=== PATIENT | female | born 1930 | race Caucasian/White ===

== ENCOUNTER 2016-11-05 03:15 | Inpatient (IN) | payer OTHER ==
[2016-11-05] VITALS (10 sets, daily range): BP systolic 104–116; BP diastolic 51–60
[~2016-11-05] VITALS: Ht 165.1 cm; Wt 59.0 kg
[~2016-11-05 03:15] MED LIST: AMLO5TAB2 PO; ASPI81TA2 PO; ATOR40TA PO; CLOP75TA2 PO; DEXT15DR6 EACHEYE; EZET10TA PO; HYDR-552 PO; IPRA3AMP IH; ISOS30TA6 PO; LEVO137T2 PO; LEVO500T15 PO; METO25TA6 PO; MULT1TAB73 PO; PARO40TA3 PO; PRED20TA PO; TEMA30CA PO
[2016-11-05 03:56] LABS: BASOPHILS % (AUTO) 0.4 % (0.0-2.0); DIFF TOTAL % 100 %; EOSINOPHILS # (AUTO) 0.1 /CMM (0.0-0.7); EOSINOPHILS % (AUTO) 0.9 % (0.0-6.0); HEMATOCRIT 35 % (33-45); HEMOGLOBIN 11.3 g/dL (11.5-14.8); LYMPHOCYTES # (AUTO) 1.4 /CMM (0.8-4.8); LYMPHOCYTES % (AUTO) 12.1 % (20.0-44.0); MEAN CORPUSCULAR HEMOGLOBIN 28 PG (26.0-33.0); MEAN CORPUSCULAR HGB CONC 33 g/dl (31.0-36.0); MEAN CORPUSCULAR VOLUME 85 fL (82-100); MONOCYTES # (AUTO) 0.6 /CMM (0.1-1.30); MONOCYTES % (AUTO) 5.4 % (2.0-12.0); NEUTROPHILS # (AUTO) 9.2 /CMM (1.8-8.9); NEUTROPHILS % (AUTO) 81.2 % (43.0-81.0); PLATELET COUNT (AUTO) 329 /CMM (150-450); RED BLOOD CELL COUNT(AUTO) 4.09 MIL/uL (4.0-5.2); WHITE BLOOD COUNT (AUTO) 11.4 K/uL (4.3-11.0)
[2016-11-05 04:11] LABS: ANION GAP 11 (5-14); CALCIUM, SERUM 8.4 mg/dL (8.5-10.1); CARBON DIOXIDE 27 mmol/L (21-32); CHLORIDE 108 mmol/L (98-107); CREATININE 1.3 mg/dL (0.6-1.3); GLUCOSE 164 mg/dL (74-106); POTASSIUM 3.5 mmol/L (3.5-5.1); SODIUM SERUM 142 mmol/L (136-145); UREA NITROGEN, BLOOD 16 mg/dL (7-18)
[2016-11-05 04:19] LABS: INR 1.05 (0.87-1.13); PROTHROMBIN TIME 11.3 SECS (9.5-12.7)
[2016-11-05 04:25] LABS: ALANINE AMINOTRANSFERASE 14 U/L (12-78); ALBUMIN 2.9 g/dL (3.4-5.0); ASPARTATE AMINOTRANSFERASE 16 U/L (15-37); BILIRUBIN,DIRECT 0.1 mg/dL (0.0-0.2); BILIRUBIN,TOTAL 0.5 mg/dL (0.2-1.0); INDIRECT BILIRUBIN 0.4 mg/dL (0.0-1.1); TOTAL PROTEIN, SERUM 6.5 g/dL (6.4-8.2)
[2016-11-05 04:26] LABS: LACTIC ACID 2.6 mmol/L (0.4-2.0)
[2016-11-05 04:49] LABS: *LACTIC ACID REFLEX FLAG YES
[2016-11-05] MEDS ORDERED: HOME MED MISCELLANEOUS XX SCH (08:30)
[2016-11-05] MEDS: AMLODIPINE BESYLATE 5 MG TABLET PO SCH (09:00)
[2016-11-05] MEDS ORDERED: FUROSEMIDE 20 MG/2 ML VIAL IV SCH (09:00)
[2016-11-05] MEDS ORDERED: predniSONE 20 MG TABLET PO SCH (09:00)
[2016-11-05] MEDS ORDERED: POLYVINYL ALCOHOL 15 ML BOTTLE EACHEYE PRN (09:00)
[2016-11-05] MEDS: ISOSORBIDE MONONITRATE (30MG) 30 MG TAB.SR.24H PO SCH (09:00)
[2016-11-05] MEDS: EZETIMIBE 10 MG TABLET PO SCH (09:31)
[2016-11-05] MEDS: CLOPIDOGREL BISULFATE 75 MG TABLET PO SCH (09:31)
[2016-11-05] MEDS: ATORVASTATIN 40 MG TABLET PO SCH (09:31)
[2016-11-05] MEDS: PAROXETINE HCL 20 MG TABLET PO SCH (09:32)
[2016-11-05] MEDS: ASPIRIN 81 MG TAB.CHEW PO SCH (09:32)
[2016-11-05] MEDS: METOPROLOL TARTRATE 25 MG TABLET PO SCH ×2 (09:35→17:00)
[2016-11-05] MEDS: LEVOTHYROXINE SODIUM 137 MCG TABLET PO SCH (09:43)
[2016-11-05] MEDS: MULTIVITAMINS,THERAPEUTIC 1 UDTAB TABLET PO SCH (09:46)
[2016-11-05] MEDS ORDERED: LEVOFLOXACIN (500MG) 500 MG TABLET PO ONE (12:00)
[2016-11-05] MEDS ORDERED: LEVALBUTEROL HCL NEB 1.25 MG/0.5 ML VIAL.NEB NEB SCH (12:00)
[2016-11-05] MEDS: methylPREDNISolone SOD SUCC 40 MG/ML VIAL IV SCH ×2 (12:56→17:32)
[2016-11-05] MEDS: ALBUTEROL HALF STRENGTH 1.25 MG/3 ML VIAL.NEB NEB SCH ×2 (13:51→19:42)
[2016-11-05] MEDS: IPRATROPIUM NEB FS 0.5 MG/2.5 ML AMPUL.NEB NEB SCH ×2 (13:51→19:43)
[2016-11-05] MEDS: HYDROCODONE/APAP 5/325MG 1 EACH TABLET PO PRN (20:53)
[2016-11-05] MEDS: TEMAZEPAM 15 MG CAPSULE PO PRN (21:16)
[2016-11-06] VITALS (9 sets, daily range): BP systolic 107–175; BP diastolic 43–95
[2016-11-06] MEDS: ALBUTEROL HALF STRENGTH 1.25 MG/3 ML VIAL.NEB NEB SCH ×4 (01:30→19:30)
[2016-11-06] MEDS: IPRATROPIUM NEB FS 0.5 MG/2.5 ML AMPUL.NEB NEB SCH ×3 (03:38→20:00)
[2016-11-06 06:20] LABS: DIFF TOTAL % 100 %; HEMATOCRIT 34 % (33-45); HEMOGLOBIN 11.1 g/dL (11.5-14.8); LYMPHOCYTES # (AUTO) 0.6 /CMM (0.8-4.8); LYMPHOCYTES % (AUTO) 6.2 % (20.0-44.0); MEAN CORPUSCULAR HEMOGLOBIN 27 PG (26.0-33.0); MEAN CORPUSCULAR HGB CONC 32 g/dl (31.0-36.0); MEAN CORPUSCULAR VOLUME 84 fL (82-100); MONOCYTES # (AUTO) 0.3 /CMM (0.1-1.30); MONOCYTES % (AUTO) 3.1 % (2.0-12.0); NEUTROPHILS # (AUTO) 8.7 /CMM (1.8-8.9); NEUTROPHILS % (AUTO) 90.7 % (43.0-81.0); PLATELET COUNT (AUTO) 342 /CMM (150-450); RED BLOOD CELL COUNT(AUTO) 4.07 MIL/uL (4.0-5.2); WHITE BLOOD COUNT (AUTO) 9.6 K/uL (4.3-11.0)
[2016-11-06 06:50] LABS: THYROID STIMULATING HORMONE < 0.007 uIU/mL (0.358-3.74)
[2016-11-06 06:53] LABS: ANION GAP 16 (5-14); CALCIUM, SERUM 8.6 mg/dL (8.5-10.1); CARBON DIOXIDE 25 mmol/L (21-32); CHLORIDE 108 mmol/L (98-107); CREATININE 1.4 mg/dL (0.6-1.3); GLUCOSE 155 mg/dL (74-106); POTASSIUM 3.8 mmol/L (3.5-5.1); SODIUM SERUM 145 mmol/L (136-145); UREA NITROGEN, BLOOD 25 mg/dL (7-18)
[2016-11-06] MEDS: LEVOTHYROXINE SODIUM 137 MCG TABLET PO SCH (06:57)
[2016-11-06] MEDS: PAROXETINE HCL 20 MG TABLET PO SCH (09:03)
[2016-11-06] MEDS: ASPIRIN 81 MG TAB.CHEW PO SCH (09:03)
[2016-11-06] MEDS: AMLODIPINE BESYLATE 5 MG TABLET PO SCH (09:03)
[2016-11-06] MEDS: EZETIMIBE 10 MG TABLET PO SCH (09:03)
[2016-11-06] MEDS: ISOSORBIDE MONONITRATE (30MG) 30 MG TAB.SR.24H PO SCH (09:03)
[2016-11-06] MEDS: CLOPIDOGREL BISULFATE 75 MG TABLET PO SCH (09:03)
[2016-11-06] MEDS: MULTIVITAMINS,THERAPEUTIC 1 UDTAB TABLET PO SCH (09:03)
[2016-11-06] MEDS: METOPROLOL TARTRATE 25 MG TABLET PO SCH ×2 (09:03→16:52)
[2016-11-06] MEDS: ATORVASTATIN 40 MG TABLET PO SCH (09:06)
[2016-11-06] MEDS: methylPREDNISolone SOD SUCC 40 MG/ML VIAL IV SCH ×3 (10:04→18:10)
[2016-11-06] MEDS: HYDROCODONE/APAP 5/325MG 1 EACH TABLET PO PRN (12:13)
[2016-11-06] MEDS: LEVOFLOXACIN (250MG) 250 MG TABLET PO SCH (12:13)
[2016-11-06] MEDS: ALPRAZOLAM 0.25 MG TABLET PO PRN ×2 (12:26→19:49)
[2016-11-06] MEDS: ONDANSETRON HCL/PF 4 MG/2 ML VIAL IV PRN ×2 (12:32→19:49)
[2016-11-06 13:04] LABS: ABG BASE EXCESS -5.2 mmol/L; ABG HCO3 19.5 mmol/L; ABG PCO2 35.2 mmHg (35.0-45.0); ABG PH 7.361 (7.350-7.450); ABG PO2 76.6 mmHg (75.0-100.0); ABG TOTAL HEMOGLOBIN 13.2 G/dL (12.0-16.0); ALLEN TEST Pass; AaDO2 95.9 mmHg; O2Hb 90.3 % (94.0-97.0)
[2016-11-06] MEDS: FUROSEMIDE 20 MG TABLET PO SCH (16:51)
[2016-11-07] MEDS: ALBUTEROL HALF STRENGTH 1.25 MG/3 ML VIAL.NEB NEB SCH ×4 (00:51→19:53)
[2016-11-07 04:30] VITALS: BP 106/64
[2016-11-07 07:03] LABS: CALCIUM, SERUM 8.4 mg/dL (8.5-10.1); CREATININE 1.9 mg/dL (0.6-1.3); POTASSIUM 4.1 mmol/L (3.5-5.1)
[2016-11-07] MEDS ORDERED: LEVOTHYROXINE SODIUM 137 MCG TABLET PO SCH (07:30)
[2016-11-07 08:00] VITALS: BP 101/59
[2016-11-07] MEDS: METOPROLOL TARTRATE 25 MG TABLET PO SCH ×2 (08:06→16:59)
[2016-11-07] MEDS: AMLODIPINE BESYLATE 5 MG TABLET PO SCH (08:06)
[2016-11-07] MEDS: EZETIMIBE 10 MG TABLET PO SCH (08:21)
[2016-11-07] MEDS: ATORVASTATIN 40 MG TABLET PO SCH (08:21)
[2016-11-07] MEDS: CLOPIDOGREL BISULFATE 75 MG TABLET PO SCH (08:21)
[2016-11-07] MEDS: MULTIVITAMINS,THERAPEUTIC 1 UDTAB TABLET PO SCH (08:21)
[2016-11-07] MEDS: FUROSEMIDE 20 MG TABLET PO SCH (08:21)
[2016-11-07] MEDS: ASPIRIN 81 MG TAB.CHEW PO SCH (08:21)
[2016-11-07] MEDS: LEVOTHYROXINE SODIUM 100 MCG TABLET PO SCH (08:21)
[2016-11-07] MEDS: PAROXETINE HCL 20 MG TABLET PO SCH (08:21)
[2016-11-07] MEDS: ISOSORBIDE MONONITRATE (30MG) 30 MG TAB.SR.24H PO SCH (08:22)
[2016-11-07] MEDS ORDERED: methylPREDNISolone SOD SUCC 40 MG/ML VIAL IV SCH (09:00)
[2016-11-07] MEDS ORDERED: AMLODIPINE BESYLATE 5 MG TABLET PO SCH (09:00)
[2016-11-07] MEDS: predniSONE 20 MG TABLET PO SCH (09:26)
[2016-11-07] MEDS: LEVOFLOXACIN (250MG) 250 MG TABLET PO SCH (11:39)
[2016-11-07] MEDS: ALPRAZOLAM 0.25 MG TABLET PO PRN (11:39)
[2016-11-07] MEDS: HYDROCODONE/APAP 5/325MG 1 EACH TABLET PO PRN (11:43)
[2016-11-07 16:00] VITALS: BP 119/63
[2016-11-07] MEDS: IPRATROPIUM NEB FS 0.5 MG/2.5 ML AMPUL.NEB NEB SCH (19:53)
[2016-11-07 20:00] VITALS: BP 114/54
[2016-11-07 21:23] VITALS: BP 114/54
[2016-11-07] MEDS: TEMAZEPAM 15 MG CAPSULE PO PRN (22:27)
[2016-11-08] MEDS: ALBUTEROL HALF STRENGTH 1.25 MG/3 ML VIAL.NEB NEB SCH ×4 (01:41→19:39)
[2016-11-08 07:03] LABS: BASOPHILS % (AUTO) 0.1 % (0.0-2.0); DIFF TOTAL % 100 %; HEMATOCRIT 36 % (33-45); HEMOGLOBIN 11.6 g/dL (11.5-14.8); LYMPHOCYTES # (AUTO) 1.6 /CMM (0.8-4.8); LYMPHOCYTES % (AUTO) 9.6 % (20.0-44.0); MEAN CORPUSCULAR HEMOGLOBIN 27 PG (26.0-33.0); MEAN CORPUSCULAR HGB CONC 33 g/dl (31.0-36.0); MEAN CORPUSCULAR VOLUME 84 fL (82-100); MONOCYTES # (AUTO) 1.4 /CMM (0.1-1.30); MONOCYTES % (AUTO) 8.4 % (2.0-12.0); NEUTROPHILS # (AUTO) 13.5 /CMM (1.8-8.9); NEUTROPHILS % (AUTO) 81.9 % (43.0-81.0); PLATELET COUNT (AUTO) 333 /CMM (150-450); RED BLOOD CELL COUNT(AUTO) 4.25 MIL/uL (4.0-5.2); WHITE BLOOD COUNT (AUTO) 16.4 K/uL (4.3-11.0)
[2016-11-08 07:06] LABS: CALCIUM, SERUM 8.2 mg/dL (8.5-10.1); CREATININE 2.2 mg/dL (0.6-1.3); POTASSIUM 4.5 mmol/L (3.5-5.1)
[2016-11-08] MEDS: IPRATROPIUM NEB FS 0.5 MG/2.5 ML AMPUL.NEB NEB SCH ×3 (07:38→19:38)
[2016-11-08 07:55] VITALS: BP 117/90
[2016-11-08 08:00] VITALS: BP 117/90
[2016-11-08] MEDS: LEVOTHYROXINE SODIUM 100 MCG TABLET PO SCH (08:45)
[2016-11-08] MEDS: ATORVASTATIN 40 MG TABLET PO SCH (08:46)
[2016-11-08] MEDS: MULTIVITAMINS,THERAPEUTIC 1 UDTAB TABLET PO SCH (08:46)
[2016-11-08] MEDS: CLOPIDOGREL BISULFATE 75 MG TABLET PO SCH (08:46)
[2016-11-08] MEDS: predniSONE 20 MG TABLET PO SCH (08:46)
[2016-11-08] MEDS: ASPIRIN 81 MG TAB.CHEW PO SCH (08:46)
[2016-11-08] MEDS: EZETIMIBE 10 MG TABLET PO SCH (08:46)
[2016-11-08] MEDS: PAROXETINE HCL 20 MG TABLET PO SCH (08:46)
[2016-11-08] MEDS: ISOSORBIDE MONONITRATE (30MG) 30 MG TAB.SR.24H PO SCH (08:47)
[2016-11-08] MEDS: METOPROLOL TARTRATE 25 MG TABLET PO SCH ×2 (08:47→16:34)
[2016-11-08] MEDS: LEVOFLOXACIN (250MG) 250 MG TABLET PO SCH (12:45)
[2016-11-08 16:00] VITALS: BP 114/61
[2016-11-08 20:00] VITALS: BP 130/64
[2016-11-08] MEDS: ALPRAZOLAM 0.25 MG TABLET PO PRN (22:20)
[2016-11-08] MEDS: HYDROCODONE/APAP 5/325MG 1 EACH TABLET PO PRN (23:10)
[2016-11-09] MEDS: ALBUTEROL HALF STRENGTH 1.25 MG/3 ML VIAL.NEB NEB SCH ×3 (01:18→12:44)
[2016-11-09 08:00] VITALS: BP 112/60
[2016-11-09 08:10] LABS: CALCIUM, SERUM 8.1 mg/dL (8.5-10.1); CREATININE 1.8 mg/dL (0.6-1.3); POTASSIUM 3.9 mmol/L (3.5-5.1)
[2016-11-09] MEDS ORDERED: IPRA3AMP IH (08:31)
[2016-11-09] MEDS ORDERED: LEVO100T PO (08:31)
[2016-11-09] MEDS ORDERED: ALPR0.255 PO (08:31)
[2016-11-09] MEDS: predniSONE 20 MG TABLET PO SCH (08:47)
[2016-11-09] MEDS: EZETIMIBE 10 MG TABLET PO SCH (08:47)
[2016-11-09] MEDS: CLOPIDOGREL BISULFATE 75 MG TABLET PO SCH (08:47)
[2016-11-09] MEDS: ISOSORBIDE MONONITRATE (30MG) 30 MG TAB.SR.24H PO SCH (08:47)
[2016-11-09] MEDS: LEVOTHYROXINE SODIUM 100 MCG TABLET PO SCH (08:47)
[2016-11-09] MEDS: ATORVASTATIN 40 MG TABLET PO SCH (08:47)
[2016-11-09] MEDS: PAROXETINE HCL 20 MG TABLET PO SCH (08:47)
[2016-11-09] MEDS: MULTIVITAMINS,THERAPEUTIC 1 UDTAB TABLET PO SCH (08:47)
[2016-11-09] MEDS: ASPIRIN 81 MG TAB.CHEW PO SCH (08:47)
[2016-11-09] MEDS: METOPROLOL TARTRATE 25 MG TABLET PO SCH (08:48)
[2016-11-09 09:00] VITALS: BP 112/60
[2016-11-09] MEDS: LEVOFLOXACIN (250MG) 250 MG TABLET PO SCH (11:31)
[2016-11-09] MEDS: IPRATROPIUM NEB FS 0.5 MG/2.5 ML AMPUL.NEB NEB SCH (14:19)
== END 2016-11-09 15:34 | disposition home health service (06) | DRG 291 ==
LOC: ER 03:18 → TELE 05:00 → MED 11-07 09:33
PROVIDERS: ADMIT Internal Medicine; ATTEND Internal Medicine
DX: I13.0 Hypertensive heart and chronic kidney disease with heart failure and stage 1 through stage 4 chronic kidney disease, or unspecified chronic kidney disease (principal); I50.43 Acute on chronic combined systolic (congestive) and diastolic (congestive) heart failure; J96.91 Respiratory failure, unspecified with hypoxia; J44.1 Chronic obstructive pulmonary disease with (acute) exacerbation; N17.9 Acute kidney failure, unspecified; J90 Pleural effusion, not elsewhere classified; I25.10 Atherosclerotic heart disease of native coronary artery without angina pectoris; Z95.1 Presence of aortocoronary bypass graft; I50.9 Heart failure, unspecified; E03.9 Hypothyroidism, unspecified; E78.5 Hyperlipidemia, unspecified; F41.9 Anxiety disorder, unspecified; N18.9 Chronic kidney disease, unspecified; Z87.891 Personal history of nicotine dependence
CPT/HCPCS: 36415; 36600; 71010-TC; 80048-TC; 80076-TC; 83605-TC; 83880; 84439-TC; 84443-TC; 84484-TC; 85025-TC; 85730-TC; 87040-TC; 87081-TC; 93307-TC; 94799-TC; A4606; J1940; J2405; J2920; Z7610